=== PATIENT | female | born 1970 | race Caucasian/White ===

== ENCOUNTER 2022-03-28 11:15 | Inpatient (IN) | payer OTHER ==
[~2022-03-28] VITALS: Ht 162.6 cm; Wt 74.4 kg
[2022-03-30] MEDS ORDERED: DOCUSATE SODIU100 MG (08:14)
[2022-03-30] MEDS ORDERED: ESOMEPRAZOLE MA40 MG (08:14)
[2022-03-30] MEDS ORDERED: FLUMAZENIL0.1 MG/1 M (08:14)
[2022-03-30] MEDS ORDERED: FAMOTIDINE40 MG (08:14)
[2022-03-30] MEDS ORDERED: LUBIPROSTONE24 MCG (08:14)
[2022-03-30] MEDS ORDERED: NORETHINDRONE0.35 MG (08:14)
[2022-03-30] MEDS ORDERED: AMLODIPINE BESYL5 MG (08:14)
[2022-04-03] MEDS ORDERED: INTESTINEX680 M1 PO (15:12)
[2022-04-03] MEDS ORDERED: ULTRACET PO (15:12)
== END 2022-04-03 18:20 | disposition home or self-care (01) | DRG 331 ==
LOC: O/R 03-30 06:28 → SURG 03-30 09:00
PROVIDERS: Obstetrics & Gynecology Gynecologic Oncology; ADMIT Surgery; ATTEND Surgery
PROC: 07BB4ZZ Excision of Mesenteric Lymphatic, Percutaneous Endoscopic Approach (ICD-10-PCS; 2022-03-30)
PROC: 0UT54ZZ Resection of Right Fallopian Tube, Percutaneous Endoscopic Approach (ICD-10-PCS; 2022-03-30)
PROC: 3E0F7SF Introduction of Other Gas into Respiratory Tract, Via Natural or Artificial Opening (ICD-10-PCS; 2022-03-30)
PROC: 0DTF4ZZ Resection of Right Large Intestine, Percutaneous Endoscopic Approach (ICD-10-PCS; principal; 2022-03-30 09:00)
PROC: 0UT04ZZ Resection of Right Ovary, Percutaneous Endoscopic Approach (ICD-10-PCS; 2022-03-30 09:00)
PROC: 4A12X4Z Monitoring of Cardiac Electrical Activity, External Approach (ICD-10-PCS; 2022-04-02)
DX: D12.0 Benign neoplasm of cecum (principal); D37.3 Neoplasm of uncertain behavior of appendix; N83.01 Follicular cyst of right ovary; N80.201 Endometriosis of right fallopian tube, unspecified depth; R59.0 Localized enlarged lymph nodes; R93.5 Abnormal findings on diagnostic imaging of other abdominal regions, including retroperitoneum; M54.16 Radiculopathy, lumbar region; G47.30 Sleep apnea, unspecified; I10 Essential (primary) hypertension; F17.210 Nicotine dependence, cigarettes, uncomplicated